=== PATIENT | female | born 1990 | race Caucasian/White ===

== ENCOUNTER 2017-09-30 15:35 | Observation (INO) | payer MEDICAID, OTHER ==
[~2017-09-30 15:35] MED LIST: PREN1TAB52 PO
[2017-09-30 15:54] VITALS: BP 112/64
== END 2017-09-30 22:35 | disposition home or self-care (01) ==
LOC: 4S 15:35
PROVIDERS: ADMIT Obstetrics & Gynecology; ATTEND Obstetrics & Gynecology
DX: O26.892 Other specified pregnancy related conditions, second trimester (principal); R10.30 Lower abdominal pain, unspecified; Z3A.22 22 weeks gestation of pregnancy
CPT/HCPCS: 59025; 76811; G0378

== ENCOUNTER 2017-10-19 16:50 | Observation (INO) | payer MEDICAID ==
[2017-10-19 17:15] VITALS: BP 106/60
== END 2017-10-19 19:25 | disposition home or self-care (01) ==
LOC: 4S 16:50
PROVIDERS: ADMIT Obstetrics & Gynecology; ATTEND Obstetrics & Gynecology
DX: O46.92 Antepartum hemorrhage, unspecified, second trimester (principal); O26.892 Other specified pregnancy related conditions, second trimester; R10.30 Lower abdominal pain, unspecified; M54.5 Low back pain; Z3A.24 24 weeks gestation of pregnancy
CPT/HCPCS: 59025; 76817; G0378

== ENCOUNTER 2018-01-04 19:10 | Observation (INO) | payer MEDICAID ==
[~2018-01-04] VITALS: Ht 165.1 cm; Wt 55.3 kg
[2018-01-04 20:04] LABS: BILIRUBIN,URINE NEGATIVE (NEGATIVE); GLUCOSE, URINE (UA) NEGATIVE (NEGATIVE); KETONES,URINE NEGATIVE (NEGATIVE); NITRATE,URINE NEGATIVE (NEGATIVE); PH,URINE 6.5 (5.0-8.0); PROTEIN,URINE NEGATIVE (NEGATIVE)
[2018-01-04 20:17] LABS: APPEARANCE,URINE HAZY (CLEAR); LEUKOCYTE ESTERASE ,URINE SMALL (NEGATIVE); OCCULT BLOOD,URINE TRACE (NEGATIVE)
[2018-01-04 20:18] LABS: RBC,URINE 0-2 /HPF (0-2)
[2018-01-04 20:19] LABS: BACTERIA,URINE Few /HPF (None Seen); SQUAMOUS EPITHELIAL CELL,UR Moderate /LPF (None Seen)
[2018-01-04 20:24] VITALS: BP 121/68
== END 2018-01-04 20:05 | disposition home or self-care (01) ==
LOC: 4S 19:10
PROVIDERS: ADMIT Obstetrics & Gynecology; ATTEND Obstetrics & Gynecology
DX: O46.93 Antepartum hemorrhage, unspecified, third trimester (principal); Z3A.35 35 weeks gestation of pregnancy
CPT/HCPCS: 59025; 80307 ×8; 81001; 87086; G0378

== ENCOUNTER 2024-06-08 22:17 | Emergency (ER) | payer BC, MEDICAID ==
[~2024-06-08] VITALS: Ht 149.9 cm; Wt 64.0 kg
[~2024-06-08 22:17] MED LIST changes: +DSS100 PO; +FERR325T27 PO; +IBUP-1492 PO
[2024-06-08 22:24] VITALS: BP 124/86; TEMP 97.9
[2024-06-08] MEDS: SODIUM CHLORIDE 0.9% 1,000 ML IV ONE (23:23)
[2024-06-08] MEDS: LORazepam 2 MG/ML VIAL IVP ONE (23:23)
[2024-06-08 23:26] LABS: BASOPHILS % (AUTO) 1.2 % (0.0-2.0); EOSINOPHILS % (AUTO) 2.6 % (1.0-6.0); HEMATOCRIT 40.9 % (36-46); HEMOGLOBIN 13.3 g/dL (12.0-16.0); LYMPHOCYTES # (AUTO) 3.6 K/uL (1.0-4.8); LYMPHOCYTES % (AUTO) 37.4 % (22.0-44.0); MEAN CORPUSCULAR HEMOGLOBIN 28.6 pg (26.0-34.0); MEAN CORPUSCULAR HGB CONC 32.5 G/dL (31.0-37.0); MEAN CORPUSCULAR VOLUME 88 fL (80-100); MONOCYTES # (AUTO) 0.7 K/uL (0.1-1.0); NEUTROPHILS % (AUTO) 51.8 % (40.0-70.0); PLATELET COUNT (AUTO) 306 K/uL (150-450); RED BLOOD CELL COUNT(AUTO) 4.64 MIL/uL (4.00-5.20); WHITE BLOOD COUNT (AUTO) 9.7 K/uL (4.5-11.0)
[2024-06-08 23:35] LABS: ANION GAP 11 mmol/L (8-16); CALCIUM, TOTAL 8.8 mg/dL (8.8-10.5); CARBON DIOXIDE 25 mmol/L (22-29); CHLORIDE 104 mmol/L (98-107); CREATININE 0.68 mg/dL (0.60-1.30); GLOMERULAR FILTR. RATE CALC > 60 mL/min (>60); GLUCOSE,RANDOM 117 mg/dL (70-110); POTASSIUM 3.2 mmol/L (3.5-5.1); SODIUM SERUM 140 mmol/L (136-145); UREA NITROGEN, BLOOD 9 mg/dL (7-18)
[2024-06-08 23:44] LABS: TROPONIN I-HIGH SENSITIVITY Less Than 4 ng/L (<51)
[2024-06-08 23:50] VITALS: PULSE 81; RESP 20
[2024-06-09] MEDS ORDERED: HYDR-4808 PO (00:27)
== END 2024-06-09 00:36 | disposition home or self-care (01) ==
LOC: EMS 22:17
DX: F41.9 Anxiety disorder, unspecified (principal); R07.89 Other chest pain; Z91.013 Allergy to seafood
CPT/HCPCS: 99285; 96374; 71045; 96361; 80048; 84484; 85025; 85379; 36415; 93005; J2060; J7030